=== PATIENT | female | born 1950 | race Caucasian/White ===

== ENCOUNTER 2017-01-25 14:23 | Inpatient (IN) | payer MEDICARE, OTHER ==
[~2017-01-25] VITALS: Ht 162.6 cm; Wt 44.5 kg
[~2017-01-25 14:23] MED LIST: LEVA3NEB7 NEB; SPIRCAP INH; SYMB160A INH; SYMB80AE INH; XANA1TAB6 PO
[2017-01-25 14:48] VITALS: BP 120/69; PULSE 109; RESP 18; TEMP 98; O2SAT 94
[2017-01-25] MEDS ORDERED: OXYC-432 PO (15:41)
[2017-01-25] MEDS ORDERED: SPIRCAP INH (15:41)
[2017-01-25] MEDS ORDERED: LEVA0.3110 NEB (15:41)
[2017-01-25] MEDS ORDERED: XANA1TAB2 PO (15:41)
[2017-01-25] MEDS ORDERED: FERR324T4 PO (15:41)
[2017-01-25] MEDS ORDERED: SYMB160A INH (15:41)
[2017-01-25] MEDS ORDERED: DILT0.05 PO (15:41)
[2017-01-25] MEDS ORDERED: SODIUM CHLOR 0.9% 1000 ML INJ 1,000 ML IV ONE (15:45)
[2017-01-25] MEDS ORDERED: SODIUM CHLOR 0.9% 1000 ML INJ 1,000 ML IV SCH (15:45)
--- NOTE | 2017-01-25 15:55 | PD ---
HPI Chief Complaint: Fall Time Seen by Provider: 15:34 Travel History International Travel<30 days: No Contact w/Intl Traveler<30days: No Traveled to known affect area: No History of Present Illness HPI This is a 66-year-old female with history of severe COPD, previous lung cancer, who was recently admitted twice to [facility], who presents today with complaints of generalized weakness and inability to ambulate. The patient apparently was found by her daughter at home on the floor. Patient states that she's been so weak that she cannot ambulate and laid down on the floor because of weakness. There is no reported acute pain. The patient is a chronic pain patient and takes OxyContin and Xanax. Daughter states that at discharge from [facility] she had a hemoglobin of 7 and was not transfused. The patient reports shortness of breath that is chronic. There is diffuse wheezes heard when talking with her. The review of systems is limited secondary the patient' s severe weak state. PFSH Past Medical History Anxiety: Yes Depression: Yes Heart Rhythm Problems: Yes (fast heart beat ) Cancer: Yes Cardiac Catheterization: No Cardiovascular Problems: Yes High Cholesterol: No Congestive Heart Failure: No COPD: Yes Diabetes: No Diminished Hearing: No Endocrine: No Genitourinary: No Hepatitis: No Hiatal Hernia: No Immune Disorder: Yes Musculoskeletal: Yes (osteo porosis) Neurologic: No Psychiatric: Yes (anxiety,depression,panic attacks) Reproductive: No Respiratory: Yes (copd,emphyzema) Radiation Therapy: Yes Thyroid Disease: No Tetanus Vaccination: < 5 Years Influenza Vaccination: Yes PNEUMOCCOCAL Vaccine (Year): 2009 ?: Not Menopausal: Yes : 3 Para: 2 Miscarriage: 1 Past Surgical History Abdominal Surgery: Yes (ABD MASS REMOVAL; BOWEL OBSTRUCTION) AICD: No Cardiac Surgery: No Coronary Artery Bypass Graft: No Ear Surgery: No Endocrine Surgery: No Eye Surgery: No Genitourinary Surgery: No Gynecologic Surgery: Yes Joint Replacement: No Pacemaker: No Thoracic Surgery: No Other Surgery: Yes (cervical removal) Social History Alcohol Use: No Tobacco Use: No Substance Use: No Allergies-Medications (Allergen,Severity, Reaction): Coded Allergies: Naproxen (Verified Allergy, Severe, 10/31/14) Opiate Agonists (Narcotics) (Verified Allergy, Severe, 10/31/14) Prednisone (Verified Allergy, Severe, 10/31/14) STATES WAS ON FOR YEARS AND "MESSED UP HER STOMACH" Albuterol (Verified Adverse Reaction, Severe, 10/31/14) PT SAID IT GIVES HER A FAST HR, NAUSEA Reported Meds & Prescriptions Reported Meds & Active Scripts Active Reported Oxycodone-Acetaminophen 5-325 mg Tab 1 Tab PO Q6H PRN Spiriva Handihaler (Tiotropium Inh) 18 Mcg Cap 18 Mcg INH DAILY 1 capsule = 18 mcg Xopenex Neb (Levalbuterol HCl) 0.31 Mg/3 Ml Neb 0.31 Mg NEB TID Ferrous Sulfate DR (Ferrous Sulfate) 324 Mg Tabdr 324 Mg PO DAILY Diltiazem ER 24 HR 180 Mg Adriel 180 Mg PO DAILY Symbicort Inh (Budesonide/Formoterol Fumarate) 160-4.5 Mcg/Act Aero 2 Puff INH Q12HR Xanax (Alprazolam) 1 Mg Tab 1 Mg PO Q8H PRN Review of Systems Except as stated in HPI: all other systems reviewed are Neg General / Constitutional: No: Fever HENT: Positive: Lightheadedness, No: Headaches, Neck Pain Cardiovascular: Positive: Palpitations, No: Chest Pain or Discomfort Respiratory: Positive: Cough, Shortness of Breath (nonproductive), Wheezing Gastrointestinal: No: Nausea, Vomiting, Diarrhea, Abdominal Pain Genitourinary: Positive: Decreased Urinary Output, No: Dysuria Musculoskeletal: Positive: Weakness (generalized weakness) Neurologic: Positive: Weakness, Dizziness (and realized weakness), Change in Mentation (increased lethargy), No: Headache Physical Exam Narrative GENERAL: Thin, frail ill appearing female in no acute respiratory distress. The patient appears to be very lethargic but will answer questions when asked. SKIN: Focused skin assessment warm/dry. Positive skin tenting. HEAD: Atraumatic. Normocephalic. EYES: No scleral icterus. No injection or drainage. ENT: No nasal bleeding or discharge. Mucous membranes pink and moist. NECK: Trachea midline. Supple. CARDIOVASCULAR: Tachycardic with a rate in the low 100s. No obvious murmurs appreciated. RESPIRATORY: No accessory muscle use. Clear to auscultation. Breath sounds equal bilaterally. Patient had decreased respiratory effort. GASTROINTESTINAL: Abdomen soft, 4, non-tender, nondistended. MUSCULOSKELETAL: No obvious deformities. Questionable clubbing. No cyanosis. NEUROLOGICAL: Awake and lethargic. No obvious cranial nerve deficits. Motor grossly within normal limits. Normal speech. Data Data Last Documented VS Vital Signs Date Time Temp Pulse Resp B/P Pulse Ox O2 Delivery O2 Flow Rate FiO2 01/25/17 16:05 98 Nasal Cannula 3 01/25/17 14:48 98.0 109 18 120/69 Orders Electrocardiogram (01/25/17 15:34) Complete Blood Count With Diff (01/25/17 15:34) Comprehensive Metabolic Panel (01/25/17 15:34) Lipase (01/25/17 15:34) Urinalysis - C+S If Indicated (01/25/17 15:34) Magnesium (Mg) (01/25/17 15:34) Thyroid Stimulating Hormone (01/25/17 15:34) Chest, Single Ap (01/25/17 15:34) Ct Brain W/O Iv Contrast(Rout) (01/25/17 15:34) Iv Access Insert/Monitor (01/25/17 15:34) Ecg Monitoring (01/25/17 15:34) Oximetry (01/25/17 15:34) Sodium Chlor 0.9% 1000 Ml Inj (Ns 1000 M (01/25/17 15:45) Sodium Chlor 0.9% 1000 Ml Inj (Ns 1000 M (01/25/17 15:45) Admit Order (Ed Use Only) (01/25/17 17:19) Labs Laboratory Tests Test 01/25/17 01/25/17 10:09 15:45 Blood Gas Puncture Site RT RADIAL Blood Gas Patient Temperature 98.6 Blood Gas HCO3 33 mmol/L Blood Gas Base Excess 7.4 mmol/L Blood Gas Oxygen Saturation 92 % Arterial Blood pH 7.36 Arterial Blood Partial 59 mmHg Pressure CO2 Arterial Blood Partial 69 mmHG Pressure O2 Arterial Blood Oxygen Content 11.7 Vol % Arterial Blood 1.5 % Carboxyhemoglobin Arterial Blood Methemoglobin 0.4 % Blood Gas Hemoglobin 9.0 G/DL Oxygen Delivery Device NASAL CANNULA Blood Gas Liter Flow 2 L/M White Blood Count 7.4 TH/MM3 Red Blood Count 3.20 MIL/MM3 Hemoglobin 8.5 GM/DL Hematocrit 26.8 % Mean Corpuscular Volume 83.7 FL Mean Corpuscular Hemoglobin 26.6 PG Mean Corpuscular Hemoglobin 31.7 % Concent Red Cell Distribution Width 16.7 % Platelet Count 641 TH/MM3 Mean Platelet Volume 6.5 FL Neutrophils (%) (Auto) 79.1 % Lymphocytes (%) (Auto) 8.9 % Monocytes (%) (Auto) 10.2 % Eosinophils (%) (Auto) 1.2 % Basophils (%) (Auto) 0.6 % Neutrophils # (Auto) 5.8 TH/MM3 Lymphocytes # (Auto) 0.7 TH/MM3 Monocytes # (Auto) 0.8 TH/MM3 Eosinophils # (Auto) 0.1 TH/MM3 Basophils # (Auto) 0.0 TH/MM3 CBC Comment DIFF FINAL Differential Comment Sodium Level 142 MEQ/L Potassium Level 2.9 MEQ/L Chloride Level 101 MEQ/L Carbon Dioxide Level 34.2 MEQ/L Anion Gap 7 MEQ/L Blood Urea Nitrogen 4 MG/DL Creatinine LESS THAN 0.15 MG/DL Estimat Glomerular Filtration 495 ML/MIN Rate Random Glucose 79 MG/DL Calcium Level 8.0 MG/DL Magnesium Level 1.7 MG/DL Total Bilirubin 0.3 MG/DL Aspartate Amino Transf 12 U/L (AST/SGOT) Alanine Aminotransferase 12 U/L (ALT/SGPT) Alkaline Phosphatase 80 U/L Total Protein 5.2 GM/DL Albumin 1.5 GM/DL Lipase 29 U/L Thyroid Stimulating Hormone 0.137 uIU/ML 3rd Gen [facility] Medical Decision Making Medical Screen Exam Complete: Yes Emergency Medical Condition: Yes Differential Diagnosis Dehydration versus anemia versus metabolic derangement Narrative Course 66-year-old female with a history of Mycobacterium abscesses anemia, metabolic arrangement, COPD, presents today with complaints of weakness. The patient was found floor by her daughter. She does not fall but states that she was so weak she stayed on the floor. She states she was too weak to get up. Patient has multiple electrolyte abnormalities including dehydration, hypokalemia. The patient is also noted to be anemic. Patient also has a large cavitary lesion in her chest. The patient was discussed with Dr. Bishop, on-call hospitalist for [facility] hospice, who will admit the patient to his service. She has had IVD fluid started. Diagnosis Primary Impression: Hypokalemia Additional Impressions: Anemia Qualified Code: D64.9 - Anemia, unspecified type Hx of mycobacterial infection Cavitating mass in right upper lung lobe Malnourished Failure to thrive in adult COPD (chronic obstructive pulmonary disease) with chronic bronchitis Hx of cancer of lung Admitting Information Admitting Physician Requests: Admit Orlando Corbett MD Jan 25, 2017 15:55
[2017-01-25 16:05] VITALS: O2SAT 98
[2017-01-25 16:09] LABS: AUTOMATED NEUTROPHIL # 5.8 TH/MM3 (1.8-7.7); BASOPHIL % 0.6 % (0.0-2.0); EOSINOPHIL # 0.1 TH/MM3 (0-0.4); EOSINOPHIL % 1.2 % (0.0-4.0); HEMATOCRIT 26.8 % (35.0-46.0); HEMO FLAGS DIFF FINAL; LYMPH % 8.9 % (9.0-44.0); LYMPHOCYTE # 0.7 TH/MM3 (1.0-4.8); MEAN CELL VOLUME 83.7 FL (80.0-100.0); MEAN CORPUSCULAR HEMOGLOBIN 26.6 PG (27.0-34.0); MEAN CORPUSCULAR HGB CONC 31.7 % (32.0-36.0); MONO % 10.2 % (0.0-8.0); NEUT % 79.1 % (16.0-70.0); PLATELET COUNT 641 TH/MM3 (150-450); RED CELL DISTRIBUTION WIDTH 16.7 % (11.6-17.2); WHITE BLOOD COUNT 7.4 TH/MM3 (4.0-11.0)
--- NOTE | 2017-01-25 16:19 | RADRPT ---
EXAM DATE/TIME: 01/25/2017 16:09 [facility] COMPARISON: No previous studies available for comparison. INDICATIONS : General weakness. RADIATION DOSE: 45.25 CTDIvol (mGy) MEDICAL HISTORY : Chronic obstructive pulmonary disease. Carcinoma, lung. SURGICAL HISTORY : None. ENCOUNTER: Initial ACUITY: 1 day PAIN SCALE: 0/10 LOCATION: Bilateral head TECHNIQUE: Multiple contiguous axial images were obtained of the head. Using automated exposure control and adj ustment of the mA and/or kV according to patient size, radiation dose was kept as low as reasonably a chievable to obtain optimal diagnostic quality images. FINDINGS: CEREBRUM: The ventricles are normal for age. No evidence of midline shift, mass lesion, hemorrhage or acute in farction. No extra-axial fluid collections are seen. POSTERIOR FOSSA: The cerebellum and brainstem are intact. The 4th ventricle is midline. The cerebellopontine angle i s unremarkable. EXTRACRANIAL: The visualized portion of the orbits is intact. SKULL: The calvaria is intact. No evidence of skull fracture. CONCLUSION: No acute disease. Stanislav Huitron MD on January 25, 2017 at 16:16 Board Certified Radiologist. This report was verified electronically.
--- NOTE | 2017-01-25 16:20 | RADRPT ---
EXAM DATE/TIME: 01/25/2017 15:49 [facility] COMPARISON: CT NEEDLE BIOPSY LUNG, RIGHT, February 07, 2014, 11:08. CHEST SINGLE AP, October 142014, 16:28. INDICATIONS : Found unresponsive by family member today, coughing MEDICAL HISTORY : Carcinoma, lung. Radiation therapy SURGICAL HISTORY : None. ENCOUNTER: Initial ACUITY: 1 day PAIN SCORE: Non-responsive. LOCATION: Bilateral chest FINDINGS: Large cavitating mass is seen in the right upper lobe. This could represent carcinoma o r tuberculosis. The left lung is clear. Heart and pulmonary vascularity are normal. CONCLUSION: Abnormal chest with a large cavitating mass in the right upper lobe. Considerations i nclude inflammatory process such as tuberculosis and malignancy. CT scan of the chest is suggested. Leonardo Cohen MD FACR on January 25, 2017 at 16:13 Board Certified Radiologist. This report was verified electronically.
[2017-01-25 16:49] LABS: ALKALINE PHOSPHATASE 80 U/L (45-117); ALT (GPT) 12 U/L (10-53); ANION GAP 7 MEQ/L (5-15); AST (GOT) 12 U/L (15-37); BICARBONATE 34.2 MEQ/L (21.0-32.0); BLOOD UREA NITROGEN 4 MG/DL (7-18); CHLORIDE 101 MEQ/L (98-107); GLOMERULAR FILTRATION RATE 495 ML/MIN (>89); MAGNESIUM 1.7 MG/DL (1.5-2.5); SODIUM (NA) 142 MEQ/L (136-145); TOTAL BILIRUBIN ADULT 0.3 MG/DL (0.2-1.0)
[2017-01-25 17:03] LABS: POTASSIUM 2.9 MEQ/L (3.5-5.1)
[2017-01-25] MEDS: D5-1/2 NS + KCL 10 MEQ INJ 1,000 ML IV SCH (18:30)
[2017-01-25] MEDS ORDERED: POTASSIUM CHLORIDE 20 MEQ CONTROLLED RELEASE TAB PO ONE (18:30)
--- NOTE | 2017-01-25 18:30 | HHI.PR ---
Objective Objective Results - Vital Signs Date Time Temp Pulse Resp B/P Pulse Ox O2 Delivery O2 Flow Rate FiO2 01/25/17 16:05 98 Nasal Cannula 3 01/25/17 15:01 97 Nasal Cannula 3 01/25/17 14:48 98.0 109 18 120/69 94 Result Diagram: 01/25/17 1545 01/25/17 1545 Other Results Laboratory Tests Test 01/25/17 15:45 White Blood Count 7.4 Red Blood Count 3.20 Hemoglobin 8.5 Hematocrit 26.8 Mean Corpuscular Volume 83.7 Mean Corpuscular Hemoglobin 26.6 Mean Corpuscular Hemoglobin 31.7 Concent Red Cell Distribution Width 16.7 Platelet Count 641 Mean Platelet Volume 6.5 Neutrophils (%) (Auto) 79.1 Lymphocytes (%) (Auto) 8.9 Monocytes (%) (Auto) 10.2 Eosinophils (%) (Auto) 1.2 Basophils (%) (Auto) 0.6 Neutrophils # (Auto) 5.8 Lymphocytes # (Auto) 0.7 Monocytes # (Auto) 0.8 Eosinophils # (Auto) 0.1 Basophils # (Auto) 0.0 CBC Comment DIFF FINAL Differential Comment Sodium Level 142 Potassium Level 2.9 Chloride Level 101 Carbon Dioxide Level 34.2 Anion Gap 7 Blood Urea Nitrogen 4 Creatinine LESS THAN 0.15 Estimat Glomerular Filtration 495 Rate Random Glucose 79 Calcium Level 8.0 Magnesium Level 1.7 Total Bilirubin 0.3 Aspartate Amino Transf 12 (AST/SGOT) Alanine Aminotransferase 12 (ALT/SGPT) Alkaline Phosphatase 80 Total Protein 5.2 Albumin 1.5 Lipase 29 Thyroid Stimulating Hormone 0.137 3rd Gen Physical Exam Physical Exam PT IS SEEN & eXAMINED D/W LUCERO D/W MODESTA LI PT IS LETHARGIC/SLEEPY NSCLCa S/P xrt LARGE CAVITARY LESION MYCOBACTERIUM ABSCESSUS INFECTION , intolerant/Non compliant to tx COPD Anxiety failure to thrive see Orders see H&P by Lucero franks f/u Shanti Bishop MD Jan 25, 2017 18:30
--- NOTE | 2017-01-25 19:02 | RADRPT ---
EXAM DATE/TIME: 01/25/2017 18:41 [facility] COMPARISON: CHEST SINGLE AP, January 25, 2017, 15:49. CHEST SINGLE AP, October 31, 2014, 16:28. CT SIMULATION, 2014, 15:32. INDICATIONS : Evaluate for pneumonia . History of lung cancer. RADIATION DOSE: ?3.35 CTDIvol (mGy) MEDICAL HISTORY : Carcinoma, lung. Chronic obstructive pulmonary disease. Cardiovascular disease SURGICAL HISTORY : None. ENCOUNTER: Initial ACUITY: 1 day PAIN SCALE: 5/10 LOCATION: Bilateral chest TECHNIQUE: Volumetric scanning of the chest was performed. Using automated exposure control and adjustment of t he mA and/or kV according to patient size, radiation dose was kept as low as reasonably achievable to obtain optimal diagnostic quality images. FINDINGS: A noncontrast study was done. There is dense masslike consolidation in the right hilar region estimat ed at approximately 4.4 x 5.7 cm in size. Large thick walled cavity seen in the right upper lobe, inc luding the apex. Wall thickness of the cavity is generally around 2.5 cm. Patchy midlung predominant consolidation noted. A couple areas of dense consolidation are seen peripherally in the right middle lobe. There is right-sided volume loss. All these findings are new since October of 2014. There is a new 10 x 14 mm nodule with irregular margins in the left midlung. Humerus subcentimeter mediastinal lymph nodes are seen. Nothing clearly pathologic by size crite [place]. Adrenal glands and visualized liver are within normal limits. No lytic or sclerotic lesions are seen of the visualized osseous structures. CONCLUSION: 1. Right mid lung masslike consolidation and a large thick walled cavity of the right apex, findings concerning for recurrent malignancy. Infectious etiology or a combination of malignancy and infection conceivable. 2. No spiculated 10 x 14 mm mass in the left midlung. Waylon Schulz MD on January 25, 2017 at 18:55 Board Certified Radiologist. This report was verified electronically.
[2017-01-25 19:22] LABS: BLOOD GAS BASE EXCESS 7.4 mmol/L (-2-2); BLOOD GAS CARBOXYHEMOGLOBIN 1.5 % (0-4); BLOOD GAS HCO3 33 mmol/L (22-26); BLOOD GAS METHEMOGLOBIN 0.4 % (0-2); BLOOD GAS O2 HGB SATURATION 92 % (90-100); BLOOD GAS OXYGEN CONTENT 11.7 Vol % (12.0-20.0); BLOOD GAS PCO2 59 mmHg (38-42); BLOOD GAS PO2 69 mmHG (61-120); CRITICAL VALUE YES; DRAW SITE RT RADIAL; LITER FLOW 2 L/M; NUMBER OF ARTERIAL PUNCTURES 2; OXYGEN DEVICE NASAL CANNULA; STAT YES; TEMP CORR TO 98.6; ULNAR PULSE PRESENT
--- NOTE | 2017-01-25 19:41 | HHI.HP ---
HPI Service [facility] Primary Care Physician Rashid Muñoz M.D. Admission Diagnosis pneumonia, anemia, hypokalemia, metabolic derangement Diagnoses: Chief Complaint: found unresponsive Travel History International Travel<30 Days: No Contact w/Intl Traveler <30 Da: No Traveled to Known Affected Are: No History of Present Illness This is an unfortunate 66-year-old female with significant history of non-small cell carcinoma treated with palliative radiation in 2014, COPD, tobacco abuse. Patient presented to the emergency room with complaints of generalized weakness and difficulty ambulating. Apparently the patient was found on the floor by her daughter. At this time, patient is not able to provide any history, she is very lethargic. Information is obtained from medical records of [facility] and ER report. Patient is on chronic narcotics for pain, takes OxyContin and Xanax. Patient has had frequent admissions to [facility] for recurrent pneumonia and severe anemia. In November she was admitted for sepsis and pneumonia and treated with antibiotics. She returned to the hospital January 16, 2017 and was admitted with severe anemia and recurrent pneumonia. She required blood transfusions, was recommended to have GI workup but declined and was supposed to do so as outpatient. Patient was discharged home in stable condition. 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 She was evaluated by infectious disease Dr. Lopez and was put on antibiotic therapy however she was not able to tolerate and was noncompliant. Patient was evaluated in emergency room, laboratory workup was remarkable for hemoglobin of 8.5, hematocrit 26.8, platelet count 641. BMP remarkable for hypokalemia, potassium 2.9, BUN 4 creatinine 0.15. Ammonia level was 42. Albumin 1.5. CT of the head was negative. Chest x-ray significant for large cavitating mass in the right upper lobe. It isn't clear if the patient has had any fever or chills. She does have a chronic cough she has COPD. At this time, she is evaluated in emergency room. She is lethargic, attempts to open eyes to voice is oriented to self and hospital but unable to provide any information. There is no family at bedside. Patient denies taking extra medication. Patient was given potassium replacement and was started on IV fluids. Patient is admitted for further evaluation and treatment. Review of Systems ROS Limitations: Altered Mental Status Past Family Social History Past Medical History COPD Non-small cell carcinoma, status post palliative radiation Depression Anemia Cervical cancer Recurrent pneumonia and bronchitis Mycobacterial infection, was following with infectious disease , was not able to tolerate therapy. Abdominal mass Bowel obstruction Osteoporosis Recent admission for anemia, required blood transfusion, was recommended to have GI workup but declined, was supposed to do it as outpatient Recurrent admissions for pneumonia Past Surgical History Lung biopsy Laparotomy Conization of cervix Reported Medications Reported Meds & Active Scripts Active Reported Oxycodone-Acetaminophen 5-325 mg Tab 1 Tab PO Q6H PRN Spiriva [place] (Tiotropium Inh) 18 Mcg Cap 18 Mcg INH DAILY 1 capsule = 18 mcg Xopenex Neb (Levalbuterol HCl) 0.31 Mg/3 Ml Neb 0.31 Mg NEB TID Ferrous Sulfate DR (Ferrous Sulfate) 324 Mg Tabdr 324 Mg PO DAILY Diltiazem ER 24 HR 180 Mg Adriel 180 Mg PO DAILY Symbicort Inh (Budesonide/Formoterol Fumarate) 160-4.5 Mcg/Act Aero 2 Puff INH Q12HR Xanax (Alprazolam) 1 Mg Tab 1 Mg PO Q8H PRN Allergies: Coded Allergies: Naproxen (Verified Allergy, Severe, 10/31/14) Opiate Agonists (Narcotics) (Verified Allergy, Severe, 10/31/14) Prednisone (Verified Allergy, Severe, 10/31/14) STATES WAS ON FOR YEARS AND "MESSED UP HER STOMACH" Albuterol (Verified Adverse Reaction, Severe, 10/31/14) PT SAID IT GIVES HER A FAST HR, NAUSEA Active Ordered Medications Inpatient Medications Albuterol/ Ipratropium (Duoneb Neb) 1 ampule Q6HR NEB NEB ; Start 01/25/17 at 22:00 Budesonide/ Formoterol Fumarate (Symbicort 160-4.5 Inh) 2 puff Q12HR INH ; Start 01/25/17 at 21:00 Diltiazem HCl (Cardizem Cd) 180 mg DAILY PO ; Start 01/26/17 at 09:00 Enoxaparin Sodium (Lovenox Inj) 40 mg Q24H SQ ; Start 01/25/17 at 20:00 Non-Formulary Medication 0.31 mg 0.31 mg TID NEB BTX; Start 01/26/17 at 09:00 Potassium Chloride/Dextrose/ Sod Cl (D5-1/2 NS + KCl 10 Meq Inj) 1,000 ml @ 100 mls/hr Q10H IV ; Start 01/25/17 at 18:30 Potassium Chloride (KCl) 40 meq ONCE ONCE PO Last administered on 01/25/17t 18 :30; Start 01/25/17 at 18:30; Stop 01/25/17 at 18:32; Status DC Sodium Chloride (NS 1000 ml Inj) 1,000 ml @ 125 mls/hr Q8H IV Last administered on 01/25/17 15:45; Start 01/25/17 at 15:45; Stop 01/25/17 at 18:34 ; Status DC Tiotropium [place] (Spiriva Inh) 18 mcg DAILY INH ; Start 01/26/17 at 09:00 Family History Unable to obtain Social History Per review of medical record, patient has grown children. It is not clear she lives alone. She does continue to smoke, there is no documented history of alcohol, no substance abuse. Physical Exam Vital Signs Vital Signs Date Time Temp Pulse Resp B/P Pulse Ox O2 Delivery O2 Flow Rate FiO2 01/25/17 16:05 98 Nasal Cannula 3 01/25/17 15:01 97 Nasal Cannula 3 01/25/17 14:48 98.0 109 18 120/69 94 Physical Exam GENERAL: This is a malnourished, female, chronically ill appearing SKIN: No rashes, ecchymoses or lesions. Skin pale, cool and dry. HEAD: Atraumatic. Normocephalic. No temporal or scalp tenderness. EYES: Pupils equal round and reactive. Extraocular motions intact. No scleral icterus. No injection or drainage. ENT: Nose without bleeding, purulent drainage or septal hematoma. Throat without erythema, tonsillar hypertrophy or exudate. Uvula midline. Airway patent. NECK: Trachea midline. No JVD or lymphadenopathy. Supple, nontender, no meningeal signs. CARDIOVASCULAR: Regular rate and rhythm without murmurs, gallops, or rubs. RESPIRATORY: Coarse ronchi upper airway, non productive cough. Exp. wheezes. GASTROINTESTINAL: Abdomen soft, non-tender, nondistended. No hepato-splenomegaly , or palpable masses. No guarding. MUSCULOSKELETAL: Extremities without clubbing, cyanosis, or edema. No joint tenderness, effusion, or edema noted. No calf tenderness. Negative Homans sign bilaterally. NEUROLOGICAL: Lethargic, opens eyes to voice and falls asleep. Knows she is in the hospital, able to provide her name. Follows simple commands. No focal deficits noted. Laboratory Laboratory Tests Test 01/25/17 01/25/17 15:45 18:33 White Blood Count 7.4 Red Blood Count 3.20 Hemoglobin 8.5 Hematocrit 26.8 Mean Corpuscular Volume 83.7 Mean Corpuscular Hemoglobin 26.6 Mean Corpuscular Hemoglobin 31.7 Concent Red Cell Distribution Width 16.7 Platelet Count 641 Mean Platelet Volume 6.5 Neutrophils (%) (Auto) 79.1 Lymphocytes (%) (Auto) 8.9 Monocytes (%) (Auto) 10.2 Eosinophils (%) (Auto) 1.2 Basophils (%) (Auto) 0.6 Neutrophils # (Auto) 5.8 Lymphocytes # (Auto) 0.7 Monocytes # (Auto) 0.8 Eosinophils # (Auto) 0.1 Basophils # (Auto) 0.0 CBC Comment DIFF FINAL Differential Comment Sodium Level 142 Potassium Level 2.9 Chloride Level 101 Carbon Dioxide Level 34.2 Anion Gap 7 Blood Urea Nitrogen 4 Creatinine LESS THAN 0.15 Estimat Glomerular Filtration 495 Rate Random Glucose 79 Calcium Level 8.0 Magnesium Level 1.7 Total Bilirubin 0.3 Aspartate Amino Transf 12 (AST/SGOT) Alanine Aminotransferase 12 (ALT/SGPT) Alkaline Phosphatase 80 Total Protein 5.2 Albumin 1.5 Lipase 29 Thyroid Stimulating Hormone 0.137 3rd Gen Ammonia 42 Result Diagram: 01/25/17 1545 01/25/17 1545 Imaging Last Impressions Head CT 01/25/17 1534 Signed Impressions: Service Date/Time: Wednesday, January 25, 2017 16:09 - CONCLUSION: No acute disease. Stanislav Huitron MD Chest X-Ray 01/25/17 1534 Signed Impressions: Service Date/Time: Wednesday, January 25, 2017 15:49 - CONCLUSION: Abnormal chest with a large cavitating mass in the right upper lobe. Considerations include inflammatory process such as tuberculosis and malignancy. CT scan of the chest is suggested. Leonardo Cohen MD FACR Chest CT 01/25/17 0000 Signed Impressions: Service Date/Time: Wednesday, January 25, 2017 18:41 - CONCLUSION: 1. Right mid lung masslike consolidation and a large thick walled cavity of the right apex, findings concerning for recurrent malignancy. Infectious etiology or a combination of malignancy and infection conceivable. 2. No spiculated 10 x 14 mm mass in the left midlung. Waylon Schulz MD Assessment and Plan Problem List: (1) Altered mental status (2) Hypokalemia (3) Hx of mycobacterial infection (4) Cavitating mass in right upper lung lobe (5) COPD (chronic obstructive pulmonary disease) with chronic bronchitis (6) Anemia (7) Non-small cell carcinoma of lung (8) Tobacco abuse (9) Anxiety (10) Malnourished (11) Failure to thrive in adult Assessment and Plan Admit to Dr. Bishop 66-year-old female with history of non-small cell carcinoma treated with palliative radiation, recent admissions for severe anemia, sepsis and pneumonia. History of Mycobacterium infection and right upper lobe cavitary lesion. Presented to emergency room weak, was found on the floor by daughter. On Chronic pain medications, OxyContin and Xanax. Right upper lobe cavitary lesion, history Mycobacterium infection, patient was not able to tolerate treatment. She has been untreated for several months. Has had frequent admissions for recurrent pneumonia and sepsis. COPD with chronic bronchitis Consult infectious disease for evaluation Consult pulmonology CT of the chest has been ordered -Consult oncology, Dr. Osei. At this time we will hold off on starting any antibiotics until evaluated by infectious disease. Continue supplemental oxygen DuoNeb's every 6 hours Resume Symbicort and Spiriva After mental status, possibly secondary to benzo and OxyContin Continue neuro checks Monitor sats -Hold narcotics at this time Anemia, recent blood transfusion. Was recommended GI workup by gastroenterology at most recent admission. Patient was supposed to do as outpatient. Follow CBC Monitor for bleeding Hyperkalemia Potassium has been replaced Follow BMP in the morning Failure to thrive, weakness Malnourished Patient was put on a regular diet, boost has been added -Continue with IV fluids -Consult palliative care for evaluation and to assist with goals of care, CODE STATUS. Patient with multiple admissions, failure to thrive, non-small cell cancer, and Mycobacterium abscesses infection. Home medications have been reviewed, some have been initiated Plan of care has been discussed with the attending and RN. Further management of the patient will be dependent on the hospital course Patient's condition is guarded. This patient was seen by myself and Dr. Bishop, this H&P is written on his behalf Physician Certification 2 Midnight Certification Type: Admission for Inpatient Services Order for Inpatient Services The services are ordered in accordance with Medicare regulations or non- Medicare payer requirements, as applicable. In the case of services not specified as inpatient-only, they are appropriately provided as inpatient services in accordance with the 2-midnight benchmark. Estimated LOS (days): 2 2 days is the estimated time the patient will need to remain in the hospital, assuming treatment plan goals are met and no additional complications. Post-Hospital Plan: Not yet determined Problem Qualifiers (1) Altered mental status: Qualified Code: R40.0 - Somnolence (2) Anemia: Qualified Code: D64.9 - Anemia, unspecified type Lucero Rousseau [facility] Jan 25, 2017 19:41
[2017-01-25] MEDS ORDERED: ENOXAPARIN SODIUM 40 MG/0.4 ML SYRINGE SQ SCH (20:00)
[2017-01-25] MEDS: RESP: ALBUTEROL 2.5 MG/IPRATROPIUM 0.5 MG NEB (SCH) NEB (21:33)
[2017-01-25 21:35] VITALS: O2SAT 94
[2017-01-25] MEDS: FAMOTIDINE 20 MG/2 ML VIAL IV PUSH SCH (21:47)
--- NOTE | 2017-01-25 21:56 | EKG ---
Date Performed: 01/25/2017 Time Performed: 18:05:58 PTAGE: 66 years EKG: SINUS TACHYCARDIA WITH SHORT WY INTERVAL LEFT ATRIAL ENLARGEMENT ABNORMAL ECG NO PREVIOUS TRACING DOCTOR: Efe Montana Interpretating Date/Time 01/25/2017 21:55:36
[2017-01-25] MEDS: BUDESONIDE-FORMOTEROL 160/4.5 MCG INHALER INH SCH (23:52)
[2017-01-26] VITALS (12 sets, daily range): BP systolic 60–165; BP diastolic 44–82; PULSE 90–131; RESP 18–36; TEMP 96.2–100.1; O2SAT 54–100
[2017-01-26] MEDS ORDERED: ONDANSETRON HCL 4 MG/2 ML VIAL IV PRN (01:00)
[2017-01-26] MEDS ORDERED: MAGNESIUM SULFATE 1 GM PREMIX 100 ML IV ONE (01:00)
[2017-01-26] MEDS ORDERED: MAGNESIUM HYDROXIDE SUSP 30 ML CUP PO PRN (01:00)
[2017-01-26] MEDS ORDERED: ACETAMINOPHEN 325 MG TAB PO PRN (01:00)
[2017-01-26] MEDS ORDERED: DOCUSATE SODIUM 100 MG CAP PO PRN (01:00)
[2017-01-26] MEDS ORDERED: POTASSIUM CHLORIDE 20 MEQ CONTROLLED RELEASE TAB PO ONE ×2 (01:00→14:00)
[2017-01-26] MEDS: RESP: ALBUTEROL 2.5 MG/IPRATROPIUM 0.5 MG NEB (SCH) NEB (04:25)
[2017-01-26] MEDS: D5-1/2 NS + KCL 10 MEQ INJ 1,000 ML IV SCH ×2 (05:15→14:30)
[2017-01-26 07:11] LABS: HEMATOCRIT 26.9 % (35.0-46.0); MEAN CELL VOLUME 83.2 FL (80.0-100.0); MEAN CORPUSCULAR HEMOGLOBIN 27.1 PG (27.0-34.0); MEAN CORPUSCULAR HGB CONC 32.6 % (32.0-36.0); PLATELET COUNT 658 TH/MM3 (150-450); RED BLOOD COUNT 3.23 MIL/MM3 (4.00-5.30); RED CELL DISTRIBUTION WIDTH 16.9 % (11.6-17.2); REVIEW FLAG FINAL; WHITE BLOOD COUNT 7.2 TH/MM3 (4.0-11.0)
[2017-01-26 07:33] LABS: ANION GAP 7 MEQ/L (5-15); BICARBONATE 33.1 MEQ/L (21.0-32.0); BLOOD UREA NITROGEN 2 MG/DL (7-18); CHLORIDE 101 MEQ/L (98-107); GLOMERULAR FILTRATION RATE 495 ML/MIN (>89); POTASSIUM 3.2 MEQ/L (3.5-5.1); SODIUM (NA) 141 MEQ/L (136-145)
[2017-01-26] MEDS ORDERED: TIOTROPIUM BROMIDE 18 MCG INH INH SCH (09:00)
[2017-01-26] MEDS ORDERED: oxyCODONE/ACETAMINOPHEN 5 MG/325 MG TAB PO PRN (09:00)
[2017-01-26] MEDS ORDERED: DILTIAZEM-CD 180 MG CAP ER PO SCH (09:00)
[2017-01-26] MEDS ORDERED: LEVALBUTEROL NEB SCH ×2 (09:00→11:00)
[2017-01-26] MEDS: BUDESONIDE-FORMOTEROL 160/4.5 MCG INHALER INH SCH (09:18)
[2017-01-26] MEDS: FAMOTIDINE 20 MG/2 ML VIAL IV PUSH SCH (09:18)
--- NOTE | 2017-01-26 09:49 | MB ---
cc: BETY DURAN DATE OF CONSULTATION 01/26/2017 REASON FOR CONSULTATION 66-year-old female who appears to be at the end of life with a history of the lung cancer, a cavitary lesion right lung, right hilar fullness and severe COPD. PATIENT PROFILE The patient is a 66-year-old female who has been on three occasions. She is currently . She states that she lives alone in [place]. She stopped smoking approximately a year ago and had smoked at least a pack of cigarettes per day for 40 years. There has been no history of excessive alcohol intake. She was born in [place]. She has two children, a son and a daughter. She has been on disability since 1997 due to autoimmune diseases, mental health issues, and problems with vision. In the past she had worked for an [employer] in [employer]. I originally saw the patient in February of 2014 when she presented with several pulmonary lesions of which one had grown in the right lung and measured approximately 2 cm. On February 07, 2014, she had a CT-guided biopsy of the right lung and was found to have fibrotic and inflamed lung tissue with a 1-mm focus of a poorly differentiated carcinoma. The patient was subsequently treated with stereotactic radiotherapy to the right lung in February of 2014. She subsequently received radiation to the right posterior lung in July of 2014 and then another treatment involving the right lung on 10/24/2014. At some point she developed evidence of an infection and according to notes was found to have a mycobacterial abscess in the lung. She was given multiple antibiotics and is listed as being noncompliant but she states that the antibiotics made her ill. She has continued to deteriorate. She had an episode of syncope and was brought to [facility]. On 01/25/[address] scan of the thorax without IV contrast. There is a dense mass-like consolidation in the right hilar region, estimated at approximately 4.4 x 5.7 cm. There is a large thick-walled cavity seen in the right upper lobe including the apex. The thickness of the cavity is 2.5 cm. There is patchy midlung predominant consolidation. There is a 10 x 14 mm nodule with irregular margins in the left mid-lung. There is thickening of the pleura. There are findings of concern for recurrent malignancy, infection, or a combination of malignancy and infection. The patient gives a history of increasing weakness and fatigue. At one point she required blood transfusions. She can barely complete a sentence. She has severe muscle wasting. On 01/25/2017 she had a CMP. Liver function tests were normal. A serum albumin is 1.5 consistent with severe malnutrition. Hemoglobin 8.8, white count 7200, platelets 658,000. OTHER IMAGING STUDIES CT scan of the brain without IV contrast, showed no acute disease, dated 01/25/2017. PAST SURGICAL HISTORY 1. Conization the cervix for cervical cancer without recurrence. 2. Laparotomy at age 35 for intraabdominal mass. PAST MEDICAL HISTORY 1. History of a anuloma annulare. 2. Severe osteoarthritis with autoimmune disease. 3. Non-small cell cancer involving the right lung treated on three occasions with radiation therapy. 4. Severe COPD. 5. History of gout. 6. Osteoporosis. 7. malnutrition. MEDICATIONS PRIOR TO ADMISSION 1. Albuterol. 2. Diltiazem. 3. Symbicort. 4. Iron. 5. Xopenex. 6. Spiriva. ALLERGIES NAPROXEN resulting in swollen lips. PREDNISONE caused stomach inflammation. REVIEW OF SYSTEMS The patient can barely complete a sentence but what did come through is she is increasing weak, fatigued, with worsening shortness of breath. She has had a recent episode of syncope and has generalized failure to thrive. PHYSICAL EXAMINATION GENERAL: Physical exam reveals a female who appears preterminal. Her legs are flexed at the knees and the hips. She has no muscle mass. She cannot complete a sentence without pausing to catch her breathe. VITAL SIGNS: Blood pressure is 112/60, respiratory rate 20, pulse 97 and O2 saturation on 4 liters is 98%. HEENT: Head is normocephalic. Sclerae and conjunctivae normal. Oropharynx is unremarkable. No adenopathy. BREASTS: No masses. Left nipple is involuted. HEART: Regular rhythm. LUNGS: Decreased sounds right lung with some rhonchi. ABDOMEN: Soft. No hepatosplenomegaly. EXTREMITIES: Trace edema. MUSCULOSKELETAL: Severe muscle wasting. NEUROLOGIC: No focal weakness but generalized extensive weakness. ASSESSMENT The patient is a 63-year-old female who has received radiation therapy to the right lung on three occasions. She has a lesion in the left lung, right hilar consolidation and/or mass and a cavitary lesion in the right upper lobe. She has received treatment for an abscess and has received multiple antibiotics in the past. She is not significantly better and appears to be deteriorating. It is highly likely that she has lung cancer. A bronchoscopy would be required to prove this. I have ordered a CEA as this can be markedly elevated if cancer is present. If she has lung cancer, she is not a candidate for any treatment. She has had extensive treatment for pulmonary infections and this has been unsuccessful and she has had difficulty tolerating the medicines. I believe she is dying. RECOMMENDATIONS 1. Check CEA. 2. Hospice consult. 3. Infectious Disease will see her to determine whether they can offer anything that will provide a meaningful improvement. MD WOOD Gunn/MINA /8:25 AM /9:30 AM MTDD
[2017-01-26] MEDS ORDERED: POTASSIUM CHLORIDE 25 MEQ EFFERVESCENT TAB PO ONE (10:00)
--- NOTE | 2017-01-26 11:04 | HHI.PR ---
Subjective Subjective Remarks awake, alert, oriented x 3 forgetful at times states she is eating but has not eaten anything from her tray less cough no fever daughter at bsd Review of Systems Constitutional Constitutional Remarks 12 point ROS completed, negative except as noted above Vitals/Results Intake & Output 01/25/17 01/25/17 01/26/17 15:00 23:00 07:00 # Voids 1 Vital Signs Vital Signs Date Time Temp Pulse Resp B/P Pulse Ox O2 Delivery O2 Flow Rate FiO2 01/26/17 09:27 94 Nasal Cannula 4.00 01/26/17 08:30 97.4 107 18 138/70 100 01/26/17 04:45 96.2 97 20 112/60 98 01/26/17 04:25 98 Nasal Cannula 4.00 01/26/17 00:06 99.9 123 20 110/61 95 01/25/17 21:35 94 Nasal Cannula 4.00 01/25/17 16:05 98 Nasal Cannula 3 01/25/17 15:01 97 Nasal Cannula 3 01/25/17 14:48 98.0 109 18 120/69 94 CBC/BMP: 01/26/17 0630 01/26/17 0630 Lab Results Laboratory Tests Test 01/25/17 01/25/17 01/26/17 01/26/17 15:45 18:33 06:30 09:55 White Blood Count 7.4 TH/MM3 7.2 TH/MM3 Red Blood Count 3.20 MIL/MM3 3.23 MIL/MM3 Hemoglobin 8.5 GM/DL 8.8 GM/DL Hematocrit 26.8 % 26.9 % Mean Corpuscular Volume 83.7 FL 83.2 FL Mean Corpuscular Hemoglobin 26.6 PG 27.1 PG Mean Corpuscular Hemoglobin 31.7 % 32.6 % Concent Red Cell Distribution Width 16.7 % 16.9 % Platelet Count 641 TH/MM3 658 TH/MM3 Mean Platelet Volume 6.5 FL 6.7 FL Neutrophils (%) (Auto) 79.1 % Lymphocytes (%) (Auto) 8.9 % Monocytes (%) (Auto) 10.2 % Eosinophils (%) (Auto) 1.2 % Basophils (%) (Auto) 0.6 % Neutrophils # (Auto) 5.8 TH/MM3 Lymphocytes # (Auto) 0.7 TH/MM3 Monocytes # (Auto) 0.8 TH/MM3 Eosinophils # (Auto) 0.1 TH/MM3 Basophils # (Auto) 0.0 TH/MM3 CBC Comment DIFF FINAL Differential Comment Sodium Level 142 MEQ/L 141 MEQ/L Potassium Level 2.9 MEQ/L 3.2 MEQ/L Chloride Level 101 MEQ/L 101 MEQ/L Carbon Dioxide Level 34.2 MEQ/L 33.1 MEQ/L Anion Gap 7 MEQ/L 7 MEQ/L Blood Urea Nitrogen 4 MG/DL 2 MG/DL Creatinine LESS THAN 0.15 LESS THAN 0.15 MG/DL MG/DL Estimat Glomerular Filtration 495 ML/MIN 495 ML/MIN Rate Random Glucose 79 MG/DL 168 MG/DL Calcium Level 8.0 MG/DL 8.2 MG/DL Magnesium Level 1.7 MG/DL Total Bilirubin 0.3 MG/DL Aspartate Amino Transf 12 U/L (AST/SGOT) Alanine Aminotransferase 12 U/L (ALT/SGPT) Alkaline Phosphatase 80 U/L Total Protein 5.2 GM/DL Albumin 1.5 GM/DL Lipase 29 U/L Thyroid Stimulating Hormone 0.137 uIU/ML 3rd Gen Ammonia 42 MCMOL/L Carcinoembryonic Antigen 8.5 NG/ML Physical Exam General General Appearance: Well Developed, Comfortable, Malnourished Eyes Eye Exam: Pupils Equal, Pupils Reactive Ears & Nose Ears & Nose Exam: Nasal Mucosa Erath Throat Throat Exam: Oral Mucosa Erath & Moist Pulmonary Resp Exam: Rhonchi Resp Remarks exp. wheeze Cardiology CV Exam: Regular, Good Perfusion Gastrointestinal/Abdomen GI Exam: Soft, Non-Tender, Bowel Sounds Present, Non-Distended Musculoskeletal MS Exam: Joints Intact Integumentary Skin Exam: Warm, Dry Extremeties Extremities Exam: No Edema, Pedal Pulses Palpable Neurologic Neuro Exam: Alert, Awake, Oriented, Speech Clear, Moving All Extremities, No Focal Deficits Psychiatric Psych Exam: Appropriate Responses VTE Prophylaxis VTE Prophylaxis Device: SCDs Assessment/Plan Problem List: (1) Malnourished (2) Hypokalemia (3) Altered mental status (4) Non-small cell carcinoma of lung (5) Failure to thrive in adult (6) Hx of mycobacterial infection (7) Cavitating mass in right upper lung lobe (8) Anemia (9) COPD (chronic obstructive pulmonary disease) with chronic bronchitis (10) Sinus tachycardia (11) Anxiety (12) Pneumonia (13) Tobacco abuse Assessment/Plan 66-year-old female with history of non-small cell carcinoma treated with palliative radiation, recent admissions for severe anemia, sepsis and pneumonia. History of Mycobacterium infection and right upper lobe cavitary lesion. Presented to emergency room weak, was found on the floor by daughter. On Chronic pain medications, OxyContin and Xanax. Right upper lobe cavitary lesion, history Mycobacterium infection, patient was not able to tolerate treatment. She has been untreated for several months. Has had frequent admissions for recurrent pneumonia and sepsis. COPD with chronic bronchitis Consult infectious disease for evaluation, pending Consult pulmonology, pending CT of the chest has been ordered -Appreciate oncology input, Dr. Gilmore evaluated, tumor marker ordered. If lung cancer back, pt. not candidate for any treatment. Recommends hospice. At this time we will hold off on starting any antibiotics until evaluated by infectious disease. Continue supplemental oxygen DuoNeb's every 6 hours continue Symbicort and Spiriva -resp. symptoms improved, waiting for input from ID and pulm. D/W daughter, she wants to know if abx can help before deciding on hospice After mental status, possibly secondary to benzo and OxyContin Continue neuro checks Monitor sats -Hold narcotics at this time -pt. back to baseline, oriented x 3. Anemia, recent blood transfusion. Was recommended GI workup by gastroenterology at most recent admission. Patient was supposed to do as outpatient. HH stable. Monitor for bleeding Hyokalemia -K 3.2, replaced Failure to thrive, weakness Malnourished Enc. PO intake, Ensure added -Hospice consult called per Dr. Gilmore. -D/W daughter at length, very concerned about mother. Asking if she can make decisions on behalf of her mother, believes she is incompetent because she is not caring for herself. Discussed with her that pt. is alert and oriented x 3 and able to make own decision. Encouraged her to speak to hospice and discuss how they can help and support. Pt. has a poor prognosis and not likely to improve. She may not be able to tolerate treatment for mycobacterium infection. Her questions were answered in detail. -Will cancel consult to palliative care as hospice already has been notified. Replaced K Patient's condition is guarded. D/W RN D/W Dr. Bishop D/W pt and daughter at length This patient was seen by myself and Dr. Bishop, this note is written on his behalf Problem Qualifiers (1) Altered mental status: Qualified Code: R40.0 - Somnolence (2) Anemia: Qualified Code: D64.9 - Anemia, unspecified type Lucero Rousseau Jan 26, 2017 11:04
--- NOTE | 2017-01-26 15:02 | PD.CONS ---
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 Diagnoses: History of Present Illness Patient seen and examined. Records reviewed. Unable to get any good history from the patient because she barely talk due to her significant dyspnea. Patient is a 66-year-old female, admitted to the hospital after she was found by the daughter unresponsive on the floor. She apparently has been quite weak and unable to do any ambulation. From the record it looks like she was recently hospitalized at [facility] the first week of January with severe anemia and recurrent pneumonia. She was discharged, and plan was for her to get GI workup as an outpatient. She was given antibiotics. Patient has known lung cancer on the right diagnosed back in 2013. She has received radiation therapy on three occasions. 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 Lopez. She was given some treatment, but the patient had significant intolerance to the medication and she stopped taking the medication. On presentation here she had CXR which showed large cavitary mass in RUL, and CT of the chest with significant abnormality seen on her right lung. There are no films that could be compared with since the last CXR she had here is from 2013. MOst of her hospitalizations according to history is in [facility]. Patient is very short of breath even at rest, and she brings up some yellowish phlegm, occasionally with some blood. She has chest pain. She had an episode of vomiting at home. Denies any abdominal pain, diarrhea or any urinary complaint. She has not had any fever at home. She's had significant weight loss, and has very poor appetite. She has had other imaging studies on this admission which is not showing any evidence of metastatic disease. Infectious disease consultation has been requested to evaluate this patient with known diagnosis of atypical mycobacterial lung infection. Review of Systems Constitutional: COMPLAINS OF: Weight loss, Change in appetite, DENIES: Fever, Chills Eyes: DENIES: Eye pain Ears, nose, mouth, throat: DENIES: Nasal discharge, Oral lesions, Throat pain Respiratory: COMPLAINS OF: Cough, Sputum production, Shortness of breath Cardiovascular: COMPLAINS OF: Chest pain, Syncope Gastrointestinal: COMPLAINS OF: Nausea, Vomiting, DENIES: Abdominal pain, Diarrhea, Difficulty Swallowing Genitourinary: DENIES: Urinary frequency, Dysuria Musculoskeletal: COMPLAINS OF: Back pain, DENIES: Joint pain Neurologic: DENIES: Headache Psychiatric: DENIES: Hallucinations Past Family Social History Allergies: Coded Allergies: Naproxen (Verified Allergy, Severe, 10/31/14) Opiate Agonists (Narcotics) (Verified Allergy, Severe, 10/31/14) Prednisone (Verified Allergy, Severe, 10/31/14) STATES WAS ON FOR YEARS AND "MESSED UP HER STOMACH" Albuterol (Verified Adverse Reaction, Severe, 10/31/14) PT SAID IT GIVES HER A FAST HR, NAUSEA Past Medical History COPD Right non-small cell lung cancer, received radiation 3 times Annuloma granulare Arthritis Bilateral lung nodules Cancer of the cervix treated in 1985 Gout Osteoporosis Chronic smoker Past Surgical History Conization of the cervix Laparotomy at age 35 with removal of an intra-abdominal mass, benign Lung biopsy Active Ordered Medications Tylenol Albuterol Symbicort Cardizem Colace Lovenox Pepcid MOM Zofran Percocet Potassium Spiriva Social History Continues to smoke No significant alcohol abuse No illicit drugs Physical Exam Vital Signs Vital Signs Date Time Temp Pulse Resp B/P Pulse Ox O2 Delivery O2 Flow Rate FiO2 01/26/17 13:04 95 01/26/17 13:03 95 3.00 01/26/17 12:00 98.5 118 18 90/51 90 01/26/17 09:27 94 Nasal Cannula 4.00 01/26/17 08:30 97.4 107 18 138/70 100 01/26/17 04:45 96.2 97 20 112/60 98 01/26/17 04:25 98 Nasal Cannula 4.00 01/26/17 00:06 99.9 123 20 110/61 95 01/25/17 21:35 94 Nasal Cannula 4.00 01/25/17 16:05 98 Nasal Cannula 3 01/25/17 15:01 97 Nasal Cannula 3 01/25/17 14:48 98.0 109 18 120/69 94 Physical Exam GENERAL: Patient is a thin, well-developed CF, awake and alert, looks very weak, could barely speak due to severe SOB. SKIN: Warm and dry. No generalized rash, no ecchymoses and no evidence of embolic lesions. HEAD: Atraumatic. Normocephalic. No temporal wasting, or tenderness. EYES: Heeney conjunctiva. No petechia or hemorrhage. Pupils equal, round and reactive to light. Extraocular movements full and intact. No scleral icterus. No injection or drainage. EARS, NOSE AND THROAT: Nose without bleeding or purulent nasal discharge. No sinus tenderness. Mucous membranes moist. No oral lesions noted. No exudate. No oral thrush. NECK: Trachea midline. Supple and not tender, no meningeal signs CARDIOVASCULAR: Regular rate and rhythm. No murmurs, rubs or gallops heard RESPIRATORY: Has decreased BS on R lung, with some rales, few rhonchi, clear on L side ABDOMEN: Soft, flat, non-tender, nondistended. Bowel sounds present and normoactive. No guarding. No rebound. No organomegaly. EXTREMITIES: No clubbing, cyanosis, or edema. No joint effusion, has good ROM. No calf tenderness. Well perfused and warm. NEUROLOGICAL: Awake and alert. Cranial nerves grossly intact. weak PSYCHIATRIC: Cooperative LINE: No evidence of infection Laboratory Laboratory Tests Test 01/25/17 01/25/17 01/26/17 01/26/17 15:45 18:33 06:30 09:55 White Blood Count 7.4 7.2 Red Blood Count 3.20 3.23 Hemoglobin 8.5 8.8 Hematocrit 26.8 26.9 Mean Corpuscular Volume 83.7 83.2 Mean Corpuscular Hemoglobin 26.6 27.1 Mean Corpuscular Hemoglobin 31.7 32.6 Concent Red Cell Distribution Width 16.7 16.9 Platelet Count 641 658 Mean Platelet Volume 6.5 6.7 Neutrophils (%) (Auto) 79.1 Lymphocytes (%) (Auto) 8.9 Monocytes (%) (Auto) 10.2 Eosinophils (%) (Auto) 1.2 Basophils (%) (Auto) 0.6 Neutrophils # (Auto) 5.8 Lymphocytes # (Auto) 0.7 Monocytes # (Auto) 0.8 Eosinophils # (Auto) 0.1 Basophils # (Auto) 0.0 CBC Comment DIFF FINAL Differential Comment Sodium Level 142 141 Potassium Level 2.9 3.2 Chloride Level 101 101 Carbon Dioxide Level 34.2 33.1 Anion Gap 7 7 Blood Urea Nitrogen 4 2 Creatinine LESS THAN 0.15 LESS THAN 0.15 Estimat Glomerular Filtration 495 495 Rate Random Glucose 79 168 Calcium Level 8.0 8.2 Magnesium Level 1.7 Total Bilirubin 0.3 Aspartate Amino Transf 12 (AST/SGOT) Alanine Aminotransferase 12 (ALT/SGPT) Alkaline Phosphatase 80 Total Protein 5.2 Albumin 1.5 Lipase 29 Thyroid Stimulating Hormone 0.137 3rd Gen Ammonia 42 Carcinoembryonic Antigen 8.5 Result Diagram: 01/26/17 0630 01/26/17 0630 Imaging RADIOLOGY STUDIES/FILMS REVIEWED Last Impressions Head CT 01/25/17 1534 Signed Impressions: Service Date/Time: Wednesday, January 25, 2017 16:09 - CONCLUSION: No acute disease. Stanislav Huitron MD Chest X-Ray 01/25/17 1534 Signed Impressions: Service Date/Time: Wednesday, January 25, 2017 15:49 - CONCLUSION: Abnormal chest with a large cavitating mass in the right upper lobe. Considerations include inflammatory process such as tuberculosis and malignancy. CT scan of the chest is suggested. Leonardo Cohen MD FACR Chest CT 01/25/17 0000 Signed Impressions: Service Date/Time: Wednesday, January 25, 2017 18:41 - CONCLUSION: 1. Right mid lung masslike consolidation and a large thick walled cavity of the right apex, findings concerning for recurrent malignancy. Infectious etiology or a combination of malignancy and infection conceivable. 2. No spiculated 10 x 14 mm mass in the left midlung. Waylon Schulz MD Assessment and Plan Assessment and Plan IMPRESSION Cavitary mass RUL, patient with known COPD (continues to smoke), known NSCL Ca , previous XRT, and Hx atypical mycobacterial infection - we have no recent CXR here, and no information on previous CXR results and if there is any chronicity on these pulmonary infiltrates, cavitary mass - also no clear diagnosis if those infiltrates have been worked up as far as etiology, if all infectious, inflammatory or with malignancy Known atypical mycobacterial infection in lung, and unknown what kind of infiltrates she had when she was found to have this diagnosis, and per patient she only got a a brief Rx due to significant intolerance to the meds used - its very difficult to determine how much of infection is causing her infiltrates and symptoms, and if there is, then I believe that Rx would be difficult and will not really offer any significant improvement of her symptoms RECOMMENDATION From ID standpoint, I dont believe that Rx her atypical mycobacteria lung infection will offer any significant improvement or will it affect the outcome of her pulmonary problem. She also has not tolerated the Rx in the past. She has very extensive disease on her R lung, and has received XRT multiple times to the R lung Spoke with Dr Gilmore, that the has nothing to offer for her known lung CA Patient is to be evaluated by Hospice Thank you for this consultation Discussed Condition With D/W Mary Sheppard MD Jan 26, 2017 15:02
[2017-01-26] MEDS ORDERED: MORPHINE SULFATE 4 MG/ML INJ IV PUSH PRN (16:30)
[2017-01-26] MEDS ORDERED: LORazepam 2 MG/ML VIAL IV PUSH PRN (16:30)
[2017-01-26] MEDS ORDERED: MORPHINE SULFATE 4 MG/ML INJ IV PRN (16:45)
[2017-01-26] MEDS ORDERED: MORPHINE SULFATE 8 MG/ML INJ IV PUSH PRN (16:45)
[2017-01-26] MEDS ORDERED: HYOSCYAMINE 0.125 MG TAB PO/SL PRN (16:45)
[2017-01-26] MEDS ORDERED: FUROSEMIDE 20 MG/2 ML VIAL IV PRN (17:15)
[2017-01-26] MEDS ORDERED: BISACODYL 10 MG SUPP RECTAL PRN (17:15)
[2017-01-26] MEDS ORDERED: ACETAMINOPHEN 650 MG SUPP RECTAL PRN (17:15)
[2017-01-26] MEDS ORDERED: LORazepam 2 MG/ML VIAL IV PRN (17:15)
[2017-01-26] MEDS ORDERED: LORazepam 2 MG/ML VIAL IVS PRN (17:15)
[2017-01-26] MEDS: MORPHINE SULFATE 4 MG/ML INJ IV SCH (20:00)
[2017-01-27 00:15] VITALS: BP 88/53; PULSE 81; RESP 22; TEMP 98.1; O2SAT 100
[2017-01-27] MEDS: MORPHINE SULFATE 4 MG/ML INJ IV SCH ×7 (03:09→20:33)
[2017-01-27 04:11] VITALS: BP 116/55; PULSE 106; RESP 22; O2SAT 100
[2017-01-27 08:00] VITALS: BP 91/52; PULSE 104; RESP 24; TEMP 98.2; O2SAT 100
[2017-01-27] MEDS: LORazepam 2 MG/ML VIAL IV PRN ×8 (08:08→18:33)
[2017-01-27 11:37] VITALS: O2SAT 93
[2017-01-27] MEDS ORDERED: LORazepam 2 MG/ML VIAL IV PUSH ONE (14:45)
[2017-01-27] MEDS ORDERED: LORazepam 2 MG/ML VIAL IVS PRN (15:15)
[2017-01-27] MEDS ORDERED: LORazepam 2 MG/ML VIAL IV PRN (15:15)
[2017-01-27] MEDS ORDERED: MORPHINE SULFATE 8 MG/ML INJ IV PUSH PRN (15:15)
[2017-01-27] MEDS: MORPHINE SULFATE 4 MG/ML INJ IV PRN ×3 (15:22→18:33)
[2017-01-27] MEDS: LORazepam 2 MG/ML VIAL IV SCH ×2 (16:09→20:34)
[2017-01-27 20:00] VITALS: BP 70/44; PULSE 123; RESP 20; TEMP 97.9; O2SAT 89
--- NOTE | 2017-01-31 13:09 | HHI.DS ---
Discharge Summary Admission Date Jan 25, 2017 at 17:21 Discharge Date: Jan 28, 2017 Admitting Diagnosis pneumonia, anemia, hypokalemia, metabolic derangement (1) Altered mental status (2) Hypokalemia (3) Hx of mycobacterial infection (4) Cavitating mass in right upper lung lobe (5) COPD (chronic obstructive pulmonary disease) with chronic bronchitis (6) Anemia (7) Non-small cell carcinoma of lung (8) Tobacco abuse (9) Anxiety (10) Malnourished (11) Failure to thrive in adult Imaging Last Impressions Head CT 01/25/17 1534 Signed Impressions: Service Date/Time: Wednesday, January 25, 2017 16:09 - CONCLUSION: No acute disease. Stanislav Huitron MD Chest X-Ray 01/25/17 1534 Signed Impressions: Service Date/Time: Wednesday, January 25, 2017 15:49 - CONCLUSION: Abnormal chest with a large cavitating mass in the right upper lobe. Considerations include inflammatory process such as tuberculosis and malignancy. CT scan of the chest is suggested. Leonardo Cohen MD FACR Chest CT 01/25/17 0000 Signed Impressions: Service Date/Time: Wednesday, January 25, 2017 18:41 - CONCLUSION: 1. Right mid lung masslike consolidation and a large thick walled cavity of the right apex, findings concerning for recurrent malignancy. Infectious etiology or a combination of malignancy and infection conceivable. 2. No spiculated 10 x 14 mm mass in the left midlung. Waylon Schulz MD Hospital Course This is an unfortunate 66-year-old female with significant history of non-small cell carcinoma treated with palliative radiation in 2014, COPD, tobacco abuse. Patient presented to the emergency room with complaints of generalized weakness and difficulty ambulating. Apparently the patient was found on the floor by her daughter. At this time, patient is not able to provide any history, she is very lethargic. Information is obtained from medical records of [facility] and ER report. Patient is on chronic narcotics for pain, takes OxyContin and Xanax. Patient has had frequent admissions to [facility] for recurrent pneumonia and severe anemia. In November she was admitted for sepsis and pneumonia and treated with antibiotics. She returned to the hospital January 16, 2017 and was admitted with severe anemia and recurrent pneumonia. She required blood transfusions, was recommended to have GI workup but declined and was supposed to do so as outpatient. Patient was discharged home in stable condition. 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 She was evaluated by infectious disease Dr. Lopez and was put on antibiotic therapy however she was not able to tolerate and was noncompliant. Patient was evaluated in emergency room, laboratory workup was remarkable for hemoglobin of 8.5, hematocrit 26.8, platelet count 641. BMP remarkable for hypokalemia, potassium 2.9, BUN 4 creatinine 0.15. Ammonia level was 42. Albumin 1.5. CT of the head was negative. Chest x-ray significant for large cavitating mass in the right upper lobe. It isn't clear if the patient has had any fever or chills. She does have a chronic cough she has COPD. At this time, she is evaluated in emergency room. She is lethargic, attempts to open eyes to voice is oriented to self and hospital but unable to provide any information. There was no family at bedside initially. Patient denied taking extra medication. Patient was given potassium replacement and was started on IV fluids. Patient was admitted for further evaluation and treatment. (1) Malnourished (2) Hypokalemia (3) Altered mental status (4) Non-small cell carcinoma of lung (5) Failure to thrive in adult (6) Hx of mycobacterial infection (7) Cavitating mass in right upper lung lobe (8) Anemia (9) COPD (chronic obstructive pulmonary disease) with chronic bronchitis (10) Sinus tachycardia (11) Anxiety (12) Pneumonia (13) Tobacco abuse During the course of the hospitalization, the following took place: 66-year-old female with history of non-small cell carcinoma treated with palliative radiation, recent admissions for severe anemia, sepsis and pneumonia. History of Mycobacterium infection and right upper lobe cavitary lesion. Presented to emergency room weak, was found on the floor by daughter. On Chronic pain medications, OxyContin and Xanax. Right upper lobe cavitary lesion, history Mycobacterium infection, patient was not able to tolerate treatment. She has been untreated for several months. Has had frequent admissions for recurrent pneumonia and sepsis. COPD with chronic bronchitis Consulted infectious disease for evaluation, no further treatment recommended as patient had not tolerated well and not likely to improve outcome. Consult pulmonology, initially consulted and was cancelled as patient . CT of the chest ordered, right middle lung mass noted, possibly infection, possibly lung recurrence. -Appreciate oncology input, Dr. Gilmore evaluated, tumor marker ordered. Tumor marker was elevated. There is high likelihood that patient has recurrence of cancer. Hospice recommended Continue supplemental oxygen DuoNeb's every 6 hours continued Symbicort and Spiriva -Discussed with pt and patient's daughter at length. Initially daughter wanted aggressive care including antibiotics. Patient also wanted to continue antibiotics. Patient went into respiratory distress, became hypoxic. [facility] was called. When they arrived, they asked patient if she wanted to be intubated and she declined. Hospice had arrived at that time and had meeting with family. Patient accepted hospice services and was changed to inpatient hospice care. After mental status, possibly secondary to benzo and OxyContin Continue neuro checks Monitor sats -Hold narcotics at this time -pt. back to baseline, oriented x 3. Anemia, recent blood transfusion. Was recommended GI workup by gastroenterology at most recent admission. Patient was supposed to do as outpatient. HH stable. Monitor for bleeding Hyokalemia -K 3.2, replaced Failure to thrive, weakness Malnourished Enc. PO intake, Ensure added Patient was put on appropriate pain management per hospice team. Patient . Pt Condition on Discharge: Deteriorating Discharge Disposition: Hospice/Med Facility Discharge Instructions DIET: Follow Instructions for: As Tolerated, No Restrictions Activities you can perform: Regular-No Restrictions Other Activity Instructions: ACTIVITY TOELRATED Lucero Rousseau Jan 31, 2017 13:09 DIET: Follow Instructions for: As Tolerated, No Restrictions Activities you can perform: Regular-No Restrictions Other Activity Instructions: ACTIVITY TOELRATED Lucero Rousseau Jan 31, 2017 13:09
== END 2017-01-28 00:13 | disposition expired | DRG 181 ==
LOC: NEPE 14:23 → NEDA 17:21 → N05B 20:44
PROVIDERS: ADMIT Family Medicine; ATTEND Family Medicine
DX: C34.90 Malignant neoplasm of unspecified part of unspecified bronchus or lung (principal); E46 Unspecified protein-calorie malnutrition; E86.0 Dehydration; R62.7 Adult failure to thrive; J44.0 Chronic obstructive pulmonary disease with (acute) lower respiratory infection; D64.9 Anemia, unspecified; E87.6 Hypokalemia; G89.29 Other chronic pain; F17.200 Nicotine dependence, unspecified, uncomplicated; Z87.01 Personal history of pneumonia (recurrent); M10.9 Gout, unspecified; M81.0 Age-related osteoporosis without current pathological fracture; R09.02 Hypoxemia; Z92.3 Personal history of irradiation; F41.0 Panic disorder [episodic paroxysmal anxiety]; Z51.5 Encounter for palliative care; Z79.891 Long term (current) use of opiate analgesic; Z85.41 Personal history of malignant neoplasm of cervix uteri
CPT/HCPCS: 36600; 70450; 71010; 71250; 76937; 80048; 80053; 82140; 82378; 82805; 83690; 83735; 84443; 85025; 85027; 93005; 94640; 94664; J1650; J2060; J2270; J3475; J3480; J7030